=== PATIENT | male | born 1965 | race Caucasian/White ===

== ENCOUNTER 2016-09-07 14:58 | Emergency (ER) | payer MEDICARE, MEDICAID ==
[~2016-09-07] VITALS: Ht 165.1 cm; Wt 81.8 kg
[~2016-09-07 14:58] MED LIST: BUSP15 PO; RISPERDAL
[2016-09-07] MEDS ORDERED: DOXYCYCLINE 100 MG CAPSULE PO ONE (18:30)
[2016-09-07 20:30] VITALS: BP 148/78
== END 2016-09-07 20:31 | disposition home or self-care (01) ==
LOC: EMS 15:00
DX: L03.011 Cellulitis of right finger (principal); F17.210 Nicotine dependence, cigarettes, uncomplicated
CPT/HCPCS: 99284; 99406